=== PATIENT | female | born 1975 | race Caucasian/White ===

== ENCOUNTER → 2017-04-06 | Outpatient (CLI) | payer BC ==
--- NOTE | 2017-04-06 09:52 | MR ---
EXAMINATION TYPE: MR brain wo/w bayine wo DATE OF EXAM: 04/06/2017 7:43 AM COMPARISON: NONE HISTORY: Arnold-Chiari syndrome, Cervicalgia Multiplanar MultiSpin echo imaging of the cervical spine was performed. Comparison: December 27, 2015 C2-C3: No evidence for degenerative disc disease. No disc bulge/herniation or protrusion. No Canal stenosis. Foramina are patent bilaterally. C3-C4: No evidence for degenerative disc disease. No disc bulge/herniation or protrusion. No Canal stenosis. Foramina are patent bilaterally. C4-C5: No evidence for degenerative disc disease. No disc bulge/herniation or protrusion. No Canal stenosis. Foramina are patent bilaterally. C5-C6: Mild disc desiccation. Very small posterocentral disc protrusion. Minimal effacement ventral t hecal sac. No evidence for central stenosis or cord compression. C6-C7: No evidence for degenerative disc disease. No disc bulge/herniation or protrusion. No Canal stenosis. Foramina are patent bilaterally. C7-T1: No evidence for degenerative disc disease. No disc bulge/herniation or protrusion. No Canal stenosis. Foramina are patent bilaterally. The cerebellar tonsils extend to the level of the foramen magnum and extend approximately 1 mm below the level of the foramen magnum. No evidence for elle Chiari malformation. Cervical segments are int act. There is normal alignment. Cervical spinal cord is of normal signal. Craniovertebral junction relationships are within normal limits. IMPRESSION: 1. Low lying cerebellar tonsils. 2. Smaller posterocentral disc protrusion at C5-6. PRE AND POSTCONTRAST ENHANCED MRI OF THE BRAIN: CLINICAL HISTORY: CONTRAST: ML Multihance Multiplanar and multispin-echo imaging of the brain was performed both before and after the administr ation of contrast. The ventricles, basal cisterns and sulci overlying the cerebral convexities are within normal limits. There is no evidence for midline shift or mass effect. Acute intracranial hemorrhage or extra-axial collection is not evident. There are no abnormal areas of increased or decreased signal intensity within the brain parenchyma. Low-lying cerebellar tonsils without evidence for elle Chiari type I malformation. Following contrast administration, there is no evidence for pathologic enhancement or enhancing mass. The paranasal sinuses and mastoid air cells are well-aerated. IMPRESSION: Low-lying cerebellar tonsils without evidence for elle Chiari type I malformation.
== END | disposition home or self-care (01) ==
LOC: RADMRIMAIN 06:48
PROVIDERS: ATTEND Psychiatry & Neurology Neurology
DX: M50.222 Other cervical disc displacement at C5-C6 level (principal); Q07.00 Arnold-Chiari syndrome without spina bifida or hydrocephalus
CPT/HCPCS: 70553; 72141; A9581

== ENCOUNTER → 2019-02-13 | Outpatient (CLI) | payer BC ==
--- NOTE | 2019-02-13 16:17 | MR ---
MRI CERVICAL SPINE: CLINICAL HISTORY: Cervical spondylosis without myelopathy. Headache with neck pain for over 5 years p er patient. TECHNIQUE: Multiplanar, multisequence imaging of the cervical spine is performed without IV contrast. COMPARISON: MRI cervical spine December 27, 2015 FINDINGS: Sagittal images of the cervical spine show the craniocervical junction to remain within nor mal limits. The cervical and upper thoracic spinal cord remains normal in course, caliber, and signa l. Vertebral alignment is anatomic. The vertebral body and intravertebral disk heights remain michelle l. The bone marrow signal intensity is within normal limits. Axial images show the C2-C3 and C3-C4 levels to remain within normal limits. Axial images at the C4-C5 levels show new mild broad disc protrusion minimally effacing anterior thec al sac, bilateral neuroforamina are patent. Axial images at C5-C6 levels show more lobulated posterior disc protrusion effacing anterior thecal s ac with asymmetric mild right-sided neural foraminal narrowing. Axial images at C6-C7 and C7-T1 levels remain within normal limits. IMPRESSION: New degenerative changes mid cervical spine most prominent C5-C6 level.
== END | disposition home or self-care (01) ==
LOC: RADMRIMAIN 15:00
DX: M47.812 Spondylosis without myelopathy or radiculopathy, cervical region (principal)
CPT/HCPCS: 72141

== ENCOUNTER → 2019-10-20 | Outpatient (CLI) | payer BC ==
[2019-10-20 10:52] LABS: Appearance,Urine Clear (Clear); Bacteria,Urine Many /hpf; Bilirubin,Urine Negative (Negative); Blood,Urine Trace (Negative); Color,Urine Light Yellow; Glucose,Urine (UA) Negative (Negative); Ketones,Urine Negative (Negative); Leukocyte Esterase,Urine Moderate (Negative); Mucus,Urine Rare /hpf; Nitrite,Urine Negative (Negative); PH, Urine 7.5 (5.0-8.0); Protein,Urine Negative (Negative); RBC,Urine 1 /hpf (0-5); Specific Gravity,Urine 1.004 (1.001-1.035); Squamous Epithelial Cell,Urine 1 /hpf (0-4); Urobilinogen,Urine <2.0 mg/dL (<2.0); WBC,Urine 21 /hpf (0-5)
[2019-10-20 10:56] LABS: Partial Thromboplastin Time 22.6 sec (22.0-30.0); Prothrombin Time 10.6 sec (9.0-12.0)
[2019-10-20 11:09] LABS: Basophils # (A) 0.1 k/uL (0-0.2); Basophils % (A) 1 %; Eosinophils # (A) 0.1 k/uL (0-0.7); Eosinophils % (A) 2 %; HCT 37.9 % (34.0-46.0); HGB 12.7 gm/dL (11.4-16.0); Lymphocytes # (A) 1.1 k/uL (1.0-4.8); Lymphocytes % (A) 18 %; MCH 30.3 pg (25.0-35.0); MCHC 33.6 g/dL (31.0-37.0); MCV 90.3 fL (80.0-100.0); Monocytes # (A) 0.3 k/uL (0-1.0); Monocytes % (A) 5 %; Neutrophils # (A) 4.6 k/uL (1.3-7.7); Neutrophils % (A) 72 %; Platelet Count 248 k/uL (150-450); WBC 6.4 k/uL (3.8-10.6)
[2019-10-20 17:24] LABS: African American GFR (CKD) 130.3 (60.0-200.0); Albumin 4.2 g/dL (3.80-4.90); Albumin/Globulin Ratio 1.68 (1.60-3.17); Anion Gap 6.2 mmol/L (4.00-12.00); Calcium 9.3 mg/dL (8.7-10.3); Carbon Dioxide 28.8 mmol/L (21.6-31.8); Globulin 2.5 g/dL (1.6-3.3); Non-African American GFR(CKD) 112.4 (60.0-200.0); Potassium 4.5 mmol/L (3.5-5.5); Total Bilirubin 0.6 mg/dL (0.3-1.2); Total Protein 6.7 g/dL (6.2-8.2)
== END | disposition home or self-care (01) ==
LOC: LABWHC1 08:52
PROVIDERS: ATTEND Neurological Surgery
DX: G93.5 Compression of brain (principal)
CPT/HCPCS: 36415; 80053; 81001; 85025; 85610; 85730; 87086

== ENCOUNTER → 2019-11-06 | Outpatient (CLI) | payer BC ==
--- NOTE | 2019-11-07 06:32 | MR ---
EXAMINATION TYPE: MR brain/cspine wo DATE OF EXAM: 11/06/2019 COMPARISON: Prior MRI brain and cervical spine April 06, 2017. CT brain September 06, 2017. HISTORY: Loss of function on Right side following recent Chiari Decompression. History of prior attem pted Chiari decompression 2015. Extreme Nausea. TECHNIQUE: Multiplanar, multisequence imaging of the brain and brainstem and cervical spine are all p erformed without IV contrast. FINDINGS: BRAIN: Diffusion weighted images demonstrate subtle areas of increased signal corresponding to areas of incr eased T2 signal and diminished T1 signal involving the bilateral inferior aspect of the cerebellar he mispheres greater centrally near the vermis near site of posterior decompression. ADC mapping shows f airly isointense signal. New Extra-axial fluid posteriorly at this level is noted for reference axial image 7. There appears to be some involvement involving the right dorsal aspect near the cervical me dullary junction seen best flair axial image 5 measuring 4 x 7 mm transversely. There is no additional significant white matter signal abnormality above the posterior fossa. The ve ntricular system and cisternal spaces are normal in size and appearance. The brain volume is age selena ropriate. Midline structures demonstrate normal morphology. Low-lying cerebellar tonsils are now not identified . Normal vascular flow voids are present. The visualized sinuses are clear and the globes are intact. 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 C-SPINE: FINDINGS: Sagittal images of the cervical spine show interval successful correction of low-lying cere bellar tonsils. New posterior fluid collections from recent surgery is noted. The cervical and upper thoracic spinal cord is normal in course, caliber, and signal. Small focus of T2 hyperintensity note d near the cervical medullary junction right posterior aspect corresponding to recent brain MRI sagit yandel image 8 corresponding to area of acute/subacute ischemia. Vertebral alignment is anatomic. The vertebral body and intravertebral disk heights are normal. The bone marrow signal intensity is withi n normal limits. Axial images redemonstrate annular tear with tiny central disc protrusion mildly effacing anterior th ecal sac at C5-C6 level confirmed on sagittal image 8. Stable from prior. Remainder levels remain wit hin normal limits. IMPRESSION: Interval decompression of low-lying cerebellar tonsils. Stable tiny posterior disc hernia tion C5-C6 level.
== END | disposition home or self-care (01) ==
LOC: RADMRIMAIN 14:49
PROVIDERS: ATTEND Neurological Surgery
DX: I63.9 Cerebral infarction, unspecified (principal); G93.89 Other specified disorders of brain; M50.222 Other cervical disc displacement at C5-C6 level
CPT/HCPCS: 70551; 72141

== ENCOUNTER → 2020-05-06 | Outpatient (CLI) | payer BC ==
[2020-05-06 13:19] LABS: Basophils % (A) 1 %; Eosinophils # (A) 0.1 k/uL (0-0.7); Eosinophils % (A) 1 %; HCT 36.7 % (34.0-46.0); HGB 12.4 gm/dL (11.4-16.0); Lymphocytes # (A) 1.1 k/uL (1.0-4.8); Lymphocytes % (A) 14 %; MCH 28.9 pg (25.0-35.0); MCHC 33.7 g/dL (31.0-37.0); MCV 85.7 fL (80.0-100.0); Mean Platelet Volume 7.4; Monocytes # (A) 0.3 k/uL (0-1.0); Monocytes % (A) 4 %; Neutrophils # (A) 6.2 k/uL (1.3-7.7); Neutrophils % (A) 79 %; Platelet Count 296 k/uL (150-450); RBC 4.29 m/uL (3.80-5.40); RDW 12.5 % (11.5-15.5)
== END | disposition home or self-care (01) ==
LOC: LABPAT 13:00
PROVIDERS: ATTEND Obstetrics & Gynecology Obstetrics
DX: Z01.818 Encounter for other preprocedural examination (principal); N84.1 Polyp of cervix uteri; N93.8 Other specified abnormal uterine and vaginal bleeding
CPT/HCPCS: 85025

== ENCOUNTER 2020-05-10 09:52 | Day surgery (SDC) | payer BC ==
[2020-05-05 16:13] VITALS: BMI 23.2
[~2020-05-10 09:52] MED LIST: DEXAMETHASONE SOD PHOSPHATE 4 MG/ML 1 ML VIAL IV ONE; HYDROmorphone 0.5 MG/0.5 ML SYRINGE IVP PRN; LACTATED RINGERS 1,000 ML IV SCH; ONDANSETRON 4 MG/2 ML VIAL IVP ONE; Pre Op ABX Message 1 EACH MISC MISCELLANE ONE
[2020-05-10] MEDS ORDERED: LACTATED RINGERS 1,000 ML IV ONE (10:48)
[2020-05-10 10:52] VITALS: RESP 16
[2020-05-10] MEDS ORDERED: diphenhydrAMINE 50 MG/ML 1 ML VIAL ONE (10:53)
[2020-05-10] MEDS ORDERED: MIDAZOLAM 2 MG/2 ML VIAL ONE (10:53)
[2020-05-10] MEDS ORDERED: KETOROLAC 15 MG/ML 1 ML VIAL ONE (10:53)
[2020-05-10] MEDS ORDERED: LIDOCAINE 1% INJ 10MG/ML (20 ML MDV) ONE (10:53)
[2020-05-10] MEDS ORDERED: fentaNYL (PF) 50 MCG/ML 2 ML AMP ONE (10:53)
[2020-05-10] MEDS ORDERED: PROPOFOL 10 MG/ML 20 ML VIAL IV ONE (10:53)
[2020-05-10] MEDS ORDERED: ONDANSETRON 4 MG/2 ML VIAL ONE (10:53)
[2020-05-10] MEDS ORDERED: SCOPOLAMINE 1.5MG/72HR PATCH TRANSDERM ONE (10:54)
[2020-05-10 11:29] VITALS: TEMP 98
--- NOTE | 2020-05-10 11:41 | P.OP ---
Date of Procedure: 05/10/20 Preoperative Diagnosis: Menorrhagia, endometrial polyps Postoperative Diagnosis: Same Procedure(s) Performed: Hysteroscopy, dilation and curettage, Mirena IUD placement Anesthesia: MAC Surgeon: Jennifer Connell Estimated Blood Loss (ml): 2 Urine output (ml): 100 Pathology: other (Endometrial curettings) Condition: stable Disposition: PACU Indications for Procedure: Heavy menstrual bleeding, endometrial polyps Operative Findings: Proliferative endometrium with polyps noted Description of Procedure: Patient was taken back to the operating suite where general anesthesia was obtained without difficulty by the anesthesia . She was then prepped and draped in normal sterile fashion in the dorsal lithotomy position [place] catheter was then used to drain the bladder clear yellow urine. A weighted speculum was placed in the posterior vaginal vault intralipids the cervix is visualized and grasped with a single-tooth tenaculum. Endocervical canal was then dilated to 15-Hebrew. Hysteroscope was placed through the cervix and toward the endometrial cavity multiple polyps were noted. Pictures were taken and the camera was removed without difficulty. A sharp curettage was then performed until gritty texture was noted in all 4 quadrants of the endometrial cavity. Multiple polyps were noted specimen. Specimen was then sent to pathology for analysis. At this time the Mirena IUD was opened and set to the appropriate length of the patient's cavity, and placed without difficulty. The strings were then trimmed. The single-tooth tenaculum was taken off of the anterior lip the cervix hemostasis was appreciated. All counts were noted be correct 2 at the end of the procedure, patient tolerated procedure well and was taken the recovery room awake in stable condition.
[2020-05-10 12:25] VITALS: BP 106/62; PULSE 46
== END 2020-05-10 13:00 | disposition home or self-care (01) ==
LOC: OR 09:52
PROVIDERS: ATTEND Obstetrics & Gynecology Obstetrics
DX: N84.0 Polyp of corpus uteri (principal); G93.5 Compression of brain; Z90.49 Acquired absence of other specified parts of digestive tract; Z98.890 Other specified postprocedural states; Z79.899 Other long term (current) drug therapy
CPT/HCPCS: 81025; 88305; 58300; 58558; J2250; J1200; J1100; J2405; J2001; J3010; J1885; J2704

== ENCOUNTER → 2020-09-03 | Outpatient (CLI) | payer BC ==
[2020-09-03 15:50] LABS: HCT 37.5 % (37.2-46.3); MCH 28.4 pg (27.0-32.0); MCV 88.9 fL (80.0-97.0); Mean Platelet Volume 11.3 fL (9.5-12.2); Platelet Count 262 X 10*3/uL (140-440); RBC 4.22 X 10*6/uL (4.10-5.20); RDW 13.1 % (11.5-14.5); WBC 4.91 X 10*3/uL (4.50-10.00)
[2020-09-03 16:25] LABS: African American GFR (CKD) 105.4 (60.0-200.0); Albumin 4.3 g/dL (3.80-4.90); Albumin/Globulin Ratio 1.95 (1.60-3.17); Calcium 9.1 mg/dL (8.7-10.3); Globulin 2.2 g/dL (1.6-3.3); Magnesium 1.8 mg/dL (1.5-2.4); Non-African American GFR(CKD) 90.9 (60.0-200.0); Potassium 4.6 mmol/L (3.5-5.5); Total Bilirubin 0.5 mg/dL (0.2-1.2); Total Protein 6.5 g/dL (6.2-8.2)
[2020-09-03 18:24] LABS: Gliadin AB IgA, Deaminated NEGATIVE (NEGATIVE); Gliadin AB IgA, Unit 0.3 U/mL; Gliadin AB IgG, Deaminated NEGATIVE (NEGATIVE)
== END | disposition home or self-care (01) ==
LOC: LABWHC1 07:32
PROVIDERS: ATTEND Family Medicine
DX: K58.0 Irritable bowel syndrome with diarrhea (principal); R06.02 Shortness of breath; R53.83 Other fatigue
CPT/HCPCS: 36415; 80053; 82103; 82306; 82607; 82784; 83516; 83735; 84439; 84443; 85027

== ENCOUNTER → 2020-09-15 | Outpatient (CLI) | payer BC ==
--- NOTE | 2020-09-15 08:52 | CT ---
EXAMINATION TYPE: CT chest wo con DATE OF EXAM: 09/15/2020 COMPARISON: Chest x-ray February 16, 2020 HISTORY: Difficulty breathing X 2 years, COPD, and asthma per order. CT DLP: 109.5 mGycm. Automated Exposure Control for Dose Reduction was Utilized. TECHNIQUE: CT scan of the thorax is performed without IV contrast. FINDINGS: LUNGS: The lungs are grossly clear, there is no concerning parenchymal mass or nodule identified. T here is no pleural effusion or pneumothorax seen. The tracheobronchial tree is patent. MEDIASTINUM: Lack of IV contrast is noted to limit evaluation for mediastinal and especially hilar ad enopathy. There are no definitive greater than 1 cm hilar or mediastinal lymph nodes. No cardiomega ly or pericardial effusion is seen. OTHER: Slight underlying Scoliotic curvature on coronal images. Mild to minimal multilevel anterior s purring. IMPRESSION: No suspicious acute or chronic pulmonary process.
--- NOTE | 2020-09-15 11:19 | MM ---
Reason for exam: screening (asymptomatic). Baseline mammogram. History: Patient is nulliparous. Took other hormone for 1 year beginning at age 43. Physical Findings: Nurse did not find any significant physical abnormalities on exam. MG 3D Screening Mammo W/Cad Bilateral CC, MLO, and XCCL view(s) were taken. The breast tissue is heterogeneously dense. This may lower the sensitivity of mammography. No suspicious calcifications or masses. There is no discrete abnormality. These results were verbally communicated with the patient and result sheet given to the patient on 09/15/20. ASSESSMENT: Negative, BI-RAD 1 RECOMMENDATION: Routine screening mammogram of both breasts in 1 year.
== END | disposition home or self-care (01) ==
LOC: RADCTMAIN 07:50
PROVIDERS: ATTEND Obstetrics & Gynecology Obstetrics
DX: J44.9 Chronic obstructive pulmonary disease, unspecified (principal); Z12.31 Encounter for screening mammogram for malignant neoplasm of breast
CPT/HCPCS: 71250; 77063; 77067

== ENCOUNTER → 2021-08-19 | Outpatient (CLI) | payer BC | END | disposition home or self-care (01) | LOC: RADUSWWP 09:42 | PROVIDERS: ATTEND Obstetrics & Gynecology Obstetrics | DX: Z53.9 Procedure and treatment not carried out, unspecified reason (principal) ==

== ENCOUNTER → 2022-04-14 | Outpatient (CLI) | payer BC ==
--- NOTE | 2022-04-14 09:50 | US ---
EXAMINATION TYPE: US abdomen complete DATE OF EXAM: 04/14/2022 COMPARISON: NONE CLINICAL HISTORY: Lower abdomen pain, hematuria TECHNIQUE: Multiple sonographic images of the abdomen are obtained. FINDINGS: EXAM MEASUREMENTS: Liver Length: 16.8 cm Gallbladder Wall: 0.18 cm CBD: 0.30 cm Spleen: 10.0 cm Right Kidney: 11.6 x 4.0 x 5.2 cm Left Kidney: 11.5 x 4.9 x 4.8 cm Pancreas: wnl Liver: wnl Gallbladder: wnl Evidence for sonographic Puga's sign: No CBD: wnl Spleen: wnl Right Kidney: wnl No evidence of renal calculus. No evidence of mass. Left Kidney: wnl No evidence of renal calculus. No evidence of mass. Upper IVC: wnl Abd Aorta: wnl The liver is homogenous. The intrahepatic portion of the IVC and proximal abdominal aorta are within normal limits. There is no evidence of cholelithiasis. Common bile duct is unremarkable. The visu alized portions of the pancreas are homogenous. The spleen is unremarkable. Kidneys are symmetric a nd free of hydronephrosis. No renal lesions are seen. IMPRESSION: No acute intracranial process, no evidence of renal calculi or mass.
--- NOTE | 2022-04-14 10:06 | US ---
EXAMINATION TYPE: US pelvic complete DATE OF EXAM: 04/14/2022 COMPARISON: NONE CLINICAL HISTORY: Lower abdomen pain, hematuria TECHNIQUE: Transvaginal (TV) and Transabdominal (TA) . Transabdominal sonographic images of the pel vis were acquired. Transvaginal sonographic images were medically necessary to better assess the fol lowing anatomy: EXAM MEASUREMENTS: Uterus: 8.6 x 3.9 x 4.5 cm Endometrial Stripe: 0.77 cm Right Ovary: 3.7 x 2.5 x 1.5 cm Left Ovary: 2.1 x 2.4 x 1.2 cm 1. Uterus: *In the cervical region, a complex area, possibly mass, is visualized with an echogenic foci and cyst ic regions, overall measuring 2.4 x 1.7 x 2.0cm. There is color Doppler flow within this region. *Hypoechoic mass anterior fundus measuring 0.81 x 0.65 x 0.68cm likely representing fibroid. 2. Endometrium: An echogenic area at the superior endometrium without vascularity is visualized. 0. 46 x 0.44 x 0.66cm 3. Right Ovary: wnl 4. Left Ovary: wnl 5. Bilateral Adnexa: Prominent vessels within the right adnexa 6. Posterior cul-de-sac: wnl IMPRESSION: 1. Complex area within the cervix measuring up to 2.4 cm which could represent a mass given internal color Doppler flow. Clinical correlation and further evaluation with direct visualization is recomme nded. 2. Fibroid changes. 3.
== END | disposition home or self-care (01) ==
LOC: RADUSWWP 07:41
PROVIDERS: ATTEND Family Medicine
DX: D25.9 Leiomyoma of uterus, unspecified (principal); R10.84 Generalized abdominal pain; R31.9 Hematuria, unspecified
CPT/HCPCS: 76700; 76830; 76856

== ENCOUNTER → 2022-05-09 | Outpatient (CLI) | payer BC ==
[2022-05-09 14:43] LABS: Basophils # (A) 0.04 X 10*3/uL (0.00-0.10); Basophils % (A) 0.6 %; Eosinophils % (A) 3.2 %; HCT 37.4 % (37.2-46.3); HGB 12.7 g/dL (12.0-15.0); Immature Grans, Automated 0.5 %; Lymphocytes # (A) 1.01 X 10*3/uL (0.90-5.00); Lymphocytes % (A) 16.2 %; MCH 30.2 pg (27.0-32.0); Mean Platelet Volume 10.5 fL (9.5-12.2); Monocytes # (A) 0.61 X 10*3/uL (0.20-1.00); Monocytes % (A) 9.8 %; NRBC Per 100 WBC 0 /100 WBCS (0.0-0.0); Neutrophils # (A) 4.36 X 10*3/uL (1.80-7.70); Neutrophils % (A) 69.7 %; Platelet Count 273 X 10*3/uL (140-440); RDW 12.6 % (11.5-14.5); WBC 6.25 X 10*3/uL (4.50-10.00)
== END | disposition home or self-care (01) ==
LOC: LABWHC1 10:44
PROVIDERS: ATTEND Obstetrics & Gynecology Obstetrics
DX: Z01.812 Encounter for preprocedural laboratory examination (principal); N88.8 Other specified noninflammatory disorders of cervix uteri
CPT/HCPCS: 36415; 85025

== ENCOUNTER 2022-05-12 07:25 | Day surgery (SDC) | payer BC ==
[2022-05-09 12:56] VITALS: BMI 22.8
[~2022-05-12 07:25] MED LIST changes: +LIDOCAINE 1% (10MG/ML) FOR IV START INTRADERMA PRN; +MIDAZOLAM 2 MG/2 ML VIAL IV PRN
[2022-05-12 07:47] VITALS: RESP 16
[2022-05-12] MEDS ORDERED: SCOPOLAMINE 1 MG/72 HR PATCH TRANSDERM ONE (08:11)
[2022-05-12] MEDS ORDERED: KETOROLAC 15 MG/ML 1 ML VIAL ONE (08:33)
[2022-05-12] MEDS ORDERED: LIDOCAINE 2% INJ 20 MG/ML (2 ML VIAL) ONE (08:33)
[2022-05-12] MEDS ORDERED: PROPOFOL 10 MG/ML 20 ML VIAL IV ONE (08:33)
[2022-05-12] MEDS ORDERED: SUCCINYLCHOLINE CHLORIDE 200 MG/10 ML VIAL IV ONE (08:33)
[2022-05-12] MEDS ORDERED: MIDAZOLAM 2 MG/2 ML VIAL ONE (08:33)
[2022-05-12] MEDS ORDERED: fentaNYL (PF) 50 MCG/ML 2 ML AMP ONE (08:33)
[2022-05-12] MEDS ORDERED: SILVER NITRATE APPLICATOR 1 EACH STICK..EA. TOPICAL ONE (09:03)
[2022-05-12 09:23] VITALS: TEMP 97.4
--- NOTE | 2022-05-12 09:45 | P.OP ---
Date of Procedure: 05/12/22 Preoperative Diagnosis: Cervical mass Postoperative Diagnosis: Same Procedure(s) Performed: Hysteroscopy, dilation and curettage Anesthesia: NINI Surgeon: Jennifer Connell Estimated Blood Loss (ml): 5 Urine output (ml): 50 Pathology: other (Endocervical curettings, endometrial curettings) Condition: stable Disposition: PACU Indications for Procedure: Cervical mass appreciated on ultrasound Operative Findings: Endocervical polyps were appreciated normal appearing proliferative endometrial cavity Description of Procedure: Patient was taken back to the operating suite where general anesthesia was obta ined without difficulty by the anesthesia department. She was prepped and draped in the normal sterile fashion in the dorsal lithotomy position. A red rubber catheter was used to drain the bladder clear yellow urine. A weighted speculum posterior vaginal vault the anterior lip of the cervix was visualized and grasped with a single-tooth tenaculum. The cervical canal was then serially dilated. The uterus was sounded to 7 cm. The hysteroscope was placed through the cervix and in the endocervical canal multiple polyps were appreciated. The endometrial cavity appeared proliferative in nature. Hysteroscope was removed and a sharp curettage of the endocervical canal was then performed this specimen was sent to pathology for analysis. An additional endometrial curettage was performed and sent to pathology for analysis. The single-tooth tenaculum was removed from the antrum lip the cervix, bleeding was appreciated therefore silver nitrate and pressure was applied. Hemostasis was then noted. A small amount of bleeding was noted coming from the endocervical canal. All counts were noted be correct 2 and the procedure. Patient tolerated procedure well and was taken the recovery room awake in stable condition.
[2022-05-12 10:40] VITALS: BP 121/71; PULSE 51
== END 2022-05-12 10:53 | disposition home or self-care (01) ==
LOC: OR 07:25
PROVIDERS: ATTEND Obstetrics & Gynecology Obstetrics
DX: N84.1 Polyp of cervix uteri (principal); N87.9 Dysplasia of cervix uteri, unspecified; J45.909 Unspecified asthma, uncomplicated; Q07.00 Arnold-Chiari syndrome without spina bifida or hydrocephalus; K21.9 Gastro-esophageal reflux disease without esophagitis; G83.9 Paralytic syndrome, unspecified; Z87.891 Personal history of nicotine dependence; Z79.1 Long term (current) use of non-steroidal anti-inflammatories (NSAID); Z79.899 Other long term (current) drug therapy
CPT/HCPCS: 58558; 81025; 88305; J2250; J0330; J1100; J2405; J3010; J1885; J2704; J2001

== ENCOUNTER → 2022-11-09 | Outpatient (CLI) | payer BC ==
--- NOTE | 2022-11-09 09:49 | MR ---
EXAMINATION TYPE: MR brain wo/w con DATE OF EXAM: 11/09/2022 COMPARISON: 11/06/2019 11/09/2014 HISTORY: Right lower leg paresthesia TECHNIQUE: Multiplanar, multisequence images of the brain and brainstem is performed without and with IV contras t, utilizing 5.5 mL intravenous Gadavist . FINDINGS: Diffusion weighted images demonstrate no evidence of a recent infarct or other diffusion ab normality. There is no extra-axial fluid collection or significant white matter signal abnormality. The ventricular system and cisternal spaces are normal in size and appearance. The brain volume is age appropriate. Midline structures demonstrate normal morphology. The craniocervical junction appears within normal limits. Post contrast images demonstrate no abnormal enhancement. The dural venous sinuses appear pa tent. Mild chronic sinusitis. The globes are intact. 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 Artifact i n the posterior fossa. IMPRESSION: 1. No evidence of acute process. No enhancing mass or diagnostic evidence of white matter disease. 2. 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 Not completely cystic. Finding is stable dating back to 2014. Cannot exclude a pineocytoma. Given stabi lity lesion likely benign.
== END | disposition home or self-care (01) ==
LOC: RADMRIMAIN 08:36
PROVIDERS: ATTEND Orthopaedic Surgery
DX: E34.8 Other specified endocrine disorders (principal); G37.9 Demyelinating disease of central nervous system, unspecified; M79.661 Pain in right lower leg; M54.16 Radiculopathy, lumbar region; R20.2 Paresthesia of skin
CPT/HCPCS: 70553; A9585

== ENCOUNTER → 2023-01-04 | Outpatient (CLI) | payer BC ==
[2023-01-04 11:18] LABS: Basophils # (A) 0.06 X 10*3/uL (0.00-0.10); Basophils % (A) 1.2 %; Eosinophils # (A) 0.19 X 10*3/uL (0.04-0.35); Eosinophils % (A) 3.8 %; HCT 39.6 % (37.2-46.3); HGB 13.3 d/dL (12.0-15.0); Lymphocytes # (A) 1.08 X 10*3/uL (0.90-5.00); Lymphocytes % (A) 21.3 %; MCH 30.3 pg (27.0-32.0); MCHC 33.6 d/dL (32.0-37.0); MCV 90.2 FL (80.0-97.0); Mean Platelet Volume 10.7 FL (9.5-12.2); Monocytes # (A) 0.41 X 10*3/uL (0.20-1.00); Monocytes % (A) 8.1 %; NRBC Per 100 WBC 0 X 10*3/uL (0.00-0.01); Neutrophils # (A) 3.31 X 10*3/uL (1.80-7.70); Neutrophils % (A) 65.4 %; Platelet Count 281 X 10*3/uL (140-440); RBC 4.39 X 10*6/uL (4.10-5.20); RDW 12.2 % (11.5-14.5); WBC 5.06 X 10*3/uL (4.50-10.00)
[2023-01-04 11:35] LABS: ALT 17 U/L (8-44); AST 18 U/L (13-35); Albumin 4.5 d/dL (3.8-4.9); Albumin/Globulin Ratio 1.88 Ratio (1.60-3.17); Alkaline Phosphatase 56 U/L (41-126); BUN/Creat Ratio 18.14 Ratio (12.00-20.00); Blood Urea Nitrogen 12.7 mg/dL (9.0-27.0); Calcium 9.1 mg/dL (8.7-10.3); Carbon Dioxide 25.5 mmol/L (21.6-31.8); Chloride 104 mmol/L (96-109); Ferritin 52.2 ng/mL (10.0-291.0); Globulin 2.4 d/dL (1.6-3.3); Glucose 102 mg/dL (70-110); Iron 91 UG/DL (50-170); Magnesium 1.9 mg/dL (1.5-2.4); Potassium 4.5 mmol/L (3.5-5.5); Sodium 139 mmol/L (135-145); Total Bilirubin 0.4 mg/dL (0.3-1.2); Total Protein 6.9 d/dL (6.2-8.2)
== END | disposition home or self-care (01) ==
LOC: LABWHC1 07:35
PROVIDERS: ATTEND Family Medicine
DX: R53.83 Other fatigue (principal); R20.2 Paresthesia of skin
CPT/HCPCS: 36415; 80053; 82306; 82533; 82607; 82728; 83540; 83735; 84443; 85025

== ENCOUNTER 2024-03-20 12:48 | Observation (INO) | payer BC ==
--- NOTE | 2024-03-20 13:34 | ED ---
General Adult HPI - General Chief complaint: Neuro Symptoms/Deficit Stated complaint: neuro symptoms Time Seen by Provider: 03/20/24 13:00 Source: patient, EMS, RN notes reviewed, old records reviewed Mode of arrival: EMS Limitations: no limitations - History of Present Illness Initial comments: This is a 48-year-old female who presents to the emergency department with a past medical history significant for Chiari malformation surgery x 2. Patient states the last time she had surgery was 2001 and she had a small stroke at that time with some right-sided residual. Patient states about 10:00 this morning she had a period of time where her left side was weak and then her right hand was having a hard time writing and she started having a small headache in the temporal region bilaterally patient states she also seem to have a hard time finding words for a moment. Patient states when she was walking on the [place] she seemed to be walking a little bit more towards the left and then her thighs became really weak bilaterally and she was set down the ground by some coworkers. Patient states on the way and in the ambulance her whole body started shaking. That has since stopped and her speech is back to normal. Currently she feels like both of her arms are weaker than they normally are and she has a little bit of pain in the upper neck region at the base of her skull - Related Data Home Medications Medication Instructions Recorded Confirmed ondansetron HCL [Zofran] 4 mg PO Q6H PRN 09/06/17 03/20/24 Acetaminophen/Pamabrom [Midol 2 - 4 tab PO DAILY PRN 03/20/24 03/20/24 Caplet] Temazepam 7.5 mg PO HS 03/20/24 03/20/24 Allergies Allergy/AdvReac Type Severity Reaction Status Date / Time No Known Allergies Allergy Verified 03/20/24 14:07 Review of Systems ROS Statement: Those systems with pertinent positive or pertinent negative responses have been documented in the HPI. ROS Other: All systems not noted in ROS Statement are negative. Past Medical History Past Medical History: CVA/TIA Additional Past Medical History / Comment(s): Chiari malformation, low BP. History of Any Multi-Drug Resistant Organisms: None Reported Past Surgical History: Appendectomy Additional Past Surgical History / Comment(s): Chiari malformation surgery X2, septoplasty. Past Anesthesia/Blood Transfusion Reactions: Motion Sickness, Postoperative Nausea & Vomiting (PONV) Past Psychological History: No Psychological Hx Reported Smoking Status: Former smoker Past Alcohol Use History: Occasional Past Drug Use History: None Reported - Past Family History Mother Family Medical History: No Reported History General Exam - General Exam Comments Initial Comments: GENERAL: Patient is well-developed and well-nourished. Patient is nontoxic and well- hydrated and is in mild distress. ENT: Neck is soft and supple. No significant lymphadenopathy is noted. Oropharynx is clear. Moist mucous membranes. Neck has full range of motion without eliciting any pain. Patient has some pain at the base of her skull she states that the area where she had surgery and there is some skull missing EYES: The sclera were anicteric and conjunctiva were pink and moist. Extraocular movements were intact and pupils were equal round and reactive to light. Eyelids were unremarkable. PULMONARY: Unlabored respirations. Good breath sounds bilaterally. No audible rales rhonchi or wheezing was noted. CARDIOVASCULAR: There is a regular rate and rhythm without any murmurs gallops or rubs. ABDOMEN: Soft and nontender with normal bowel sounds. SKIN: Skin is clear with no lesions or rashes and otherwise unremarkable. NEUROLOGIC: Patient is alert and oriented x3. Cranial nerves II through XII are grossly intact. Has bilateral supervisor commissary production weakness 4 out of 5. Patient has no weakness at this time in the leg MUSCULOSKELETAL: Normal extremities with adequate strength and full range of motion. No lower extremity swelling or edema. No calf tenderness. LYMPHATICS: No significant lymphadenopathy is noted PSYCHIATRIC: Normal psychiatric evaluation. Limitations: no limitations Course Vital Signs 03/20/24 03/20/24 12:52 15:15 Temperature 98.5 F Pulse Rate 129 H 66 Respiratory 20 18 Rate Blood Pressure 128/87 122/79 O2 Sat by Pulse 99 100 Oximetry Medical Decision Making - Medical Decision Making EKG was interpreted by myself. EKG shows sinus rhythm at 80 bpm [place] interval is under 36 QRS is 99 QT interval is 387 QTc is 423. Patient EKG shows no ST segment elevation or depression Was pt. sent in by a medical professional or institution (, PA, REGISTER REPAIRER, urgent care, hospital, or long-term...) When possible be specific @ -No Did you speak to anyone other than the patient for history (EMS, parent, family, police, friend...)? What history was obtained from this source @ -No Did you review nursing and triage notes (agree or disagree)? Why? @ -I reviewed and agree with nursing and triage notes Were old charts reviewed (outside hosp., previous admission, EMS record, old EKG, old radiological studies, urgent care reports/EKG's, long-term records)? Report findings @ -No old charts were reviewed Differential Diagnosis? @ -Differential CVA Ischemic stroke, hemorrhagic stroke, brain tumor, atypical migraine, Wernicke's encephalopathy, seizure, multiple sclerosis, meningitis, encephalitis, hypoglycemia, Guillain-Barrett, electrolytes disturbance, myasthenia gravis.... This is not meant to be an all-inclusive list EKG interpreted by me (3pts min.). @ -As above X-rays interpreted by me (1pt min.). @ -None done CT interpreted by me (1pt min.). @ -CT of the brain shows no acute abnormality. CT angio of the head and neck shows no acute abnormality. U/S interpreted by me (1pt. min.). @ -None done What testing was considered but not performed or refused? (CT, X-rays, U/S, labs)? Why? @ -None What meds were considered but not given or refused? Why? @ -None Did you discuss the management of the patient with other professionals (professionals i.e. , PA, REGISTER REPAIRER, lab, RT, psych nurse, social services manager, equipment service technician, teacher, flight deck officer, patient case coordinator)? Give summary @ -Spoke with Dr. Dao he agreed to admit the patient admit the patient wrote admitting orders Was smoking cessation discussed for >3mins.? @ -No Was critical care preformed (if so, how long)? @ -No Were there social determinants of health that impacted care today? How? (Homelessness, low income, unemployed, alcoholism, drug addiction, transportation, low edu. Level, literacy, decrease access to med. care, correction, rehab)? @ -No Was there de-escalation of care discussed even if they declined (Discuss DNR or withdrawal of care, Hospice)? DNR status @ -No What co-morbidities impacted this encounter? (DM, HTN, Smoking, COPD, CAD, Cancer, CVA, ARF, Chemo, Hep., AIDS, mental health diagnosis, sleep apnea, morbid obesity)? @ -None Was patient admitted / discharged? Hospital course, mention meds given and route, prescriptions, significant lab abnormalities, going to OR and other pertinent info. @ -Patient received a milligram of Ativan and was feeling considerably better. Patient had no further symptoms throughout the ED stay. CAT scans were normal lab work is normal. I will be admitting the patient to [facility] and will consult neurology Undiagnosed new problem with uncertain prognosis? @ -No Drug Therapy requiring intensive monitoring for toxicity (Heparin, Nitro, Insulin, Cardizem)? @ -No Were any procedures done? @ -No Diagnosis/symptom? @ -TIA Acute, or Chronic, or Acute on Chronic? @ -Acute Uncomplicated (without systemic symptoms) or Complicated (systemic symptoms)? @ -Complicated Side effects of treatment? @ -No Exacerbation, Progression, or Severe Exacerbation? @ -No Poses a threat to life or bodily function? How? (Chest pain, USA, LA, pneumonia, PE, COPD, DKA, ARF, appy, cholecystitis, CVA, Diverticulitis, Homicidal, Suicidal, threat to staff... and all critical care pts) @ -Yes this could lead to a stroke and more morbidity or mortality - Lab Data Result diagrams: 03/20/24 13:41 03/20/24 13:41 Lab Results 03/20/24 03/20/24 03/20/24 Range/Units 13:41 13:41 13:41 WBC 7.9 (3.8-10.6) k/uL RBC 4.36 (3.80-5.40) m/uL Hgb 12.9 (11.4-16.0) gm/dL Hct 39.6 (34.0-46.0) % MCV 90.8 (80.0-100.0) fL MCH 29.5 (25.0-35.0) pg MCHC 32.5 (31.0-37.0) g/dL RDW 12.2 (11.5-15.5) % Plt Count 322 (150-450) k/uL MPV 8.1 Neutrophils % 73 % Lymphocytes % 19 % Monocytes % 6 % Eosinophils % 1 % Basophils % 0 % Neutrophils # 5.7 (1.3-7.7) k/uL Lymphocytes # 1.5 (1.0-4.8) k/uL Monocytes # 0.4 (0-1.0) k/uL Eosinophils # 0.1 (0-0.7) k/uL Basophils # 0.0 (0-0.2) k/uL PT 10.9 (10.0-12.5) sec INR 1.0 (<1.2) APTT 22.3 (22.0-30.0) sec Sodium 138 (137-145) mmol/L Potassium 4.3 (3.5-5.1) mmol/L Chloride 105 (98-107) mmol/L Carbon Dioxide 18 L (22-30) mmol/L Anion Gap 15 mmol/L BUN 12 (7-17) mg/dL Creatinine 0.59 (0.52-1.04) mg/dL Est GFR (CKD-EPI)AfAm >90 (>60 ml/min/1.73 sqM) Est GFR (CKD-EPI)NonAf >90 (>60 ml/min/1.73 sqM) Glucose 104 H (74-99) mg/dL Calcium 9.4 (8.4-10.2) mg/dL Total Bilirubin 0.7 (0.2-1.3) mg/dL AST 24 (14-36) U/L ALT 17 (4-34) U/L Alkaline Phosphatase 55 (38-126) U/L Creatine Kinase 48 (30-135) U/L Troponin I (0.000-0.034) ng/mL Total Protein 7.6 (6.3-8.2) g/dL Albumin 4.6 (3.5-5.0) g/dL 03/20/24 Range/Units 13:41 WBC (3.8-10.6) k/uL RBC (3.80-5.40) m/uL Hgb (11.4-16.0) gm/dL Hct (34.0-46.0) % MCV (80.0-100.0) fL MCH (25.0-35.0) pg MCHC (31.0-37.0) g/dL RDW (11.5-15.5) % Plt Count (150-450) k/uL MPV Neutrophils % % Lymphocytes % % Monocytes % % Eosinophils % % Basophils % % Neutrophils # (1.3-7.7) k/uL Lymphocytes # (1.0-4.8) k/uL Monocytes # (0-1.0) k/uL Eosinophils # (0-0.7) k/uL Basophils # (0-0.2) k/uL PT (10.0-12.5) sec INR (<1.2) APTT (22.0-30.0) sec Sodium (137-145) mmol/L Potassium (3.5-5.1) mmol/L Chloride (98-107) mmol/L Carbon Dioxide (22-30) mmol/L Anion Gap mmol/L BUN (7-17) mg/dL Creatinine (0.52-1.04) mg/dL Est GFR (CKD-EPI)AfAm (>60 ml/min/1.73 sqM) Est GFR (CKD-EPI)NonAf (>60 ml/min/1.73 sqM) Glucose (74-99) mg/dL Calcium (8.4-10.2) mg/dL Total Bilirubin (0.2-1.3) mg/dL AST (14-36) U/L ALT (4-34) U/L Alkaline Phosphatase (38-126) U/L Creatine Kinase (30-135) U/L Troponin I <0.012 (0.000-0.034) ng/mL Total Protein (6.3-8.2) g/dL Albumin (3.5-5.0) g/dL Disposition Clinical Impression: Transient cerebral ischemia Disposition: ADMITTED IP TO THIS HOSP Referrals: Samantha Desir MD [Primary Care Provider] - 1-2 days Time of Disposition: 16:25
[2024-03-20] MEDS: LORazepam 2 MG/ML INJ IV STA (13:45)
[2024-03-20 13:58] LABS: Basophils % (A) 0 %; Eosinophils # (A) 0.1 k/uL (0-0.7); Eosinophils % (A) 1 %; HCT 39.6 % (34.0-46.0); HGB 12.9 gm/dL (11.4-16.0); Lymphocytes # (A) 1.5 k/uL (1.0-4.8); Lymphocytes % (A) 19 %; MCH 29.5 pg (25.0-35.0); MCHC 32.5 g/dL (31.0-37.0); MCV 90.8 fL (80.0-100.0); Mean Platelet Volume 8.1; Monocytes # (A) 0.4 k/uL (0-1.0); Monocytes % (A) 6 %; Neutrophils # (A) 5.7 k/uL (1.3-7.7); Neutrophils % (A) 73 %; Platelet Count 322 k/uL (150-450); RBC 4.36 m/uL (3.80-5.40); RDW 12.2 % (11.5-15.5); WBC 7.9 k/uL (3.8-10.6)
[2024-03-20 14:07] LABS: Partial Thromboplastin Time 22.3 sec (22.0-30.0); Prothrombin Time 10.9 sec (10.0-12.5)
[2024-03-20 14:13] LABS: ALT 17 U/L (4-34); AST 24 U/L (14-36); African American GFR (CKD) >90 (>60 ml/min/1.73 sqM); Albumin 4.6 g/dL (3.5-5.0); Alkaline Phosphatase 55 U/L (38-126); Anion Gap 15 mmol/L; Blood Urea Nitrogen 12 mg/dL (7-17); Calcium 9.4 mg/dL (8.4-10.2); Carbon Dioxide 18 mmol/L (22-30); Chloride 105 mmol/L (98-107); Creatine Kinase 48 U/L (30-135); Glucose 104 mg/dL (74-99); Non-African American GFR(CKD) >90 (>60 ml/min/1.73 sqM); Potassium 4.3 mmol/L (3.5-5.1); Sodium 138 mmol/L (137-145); Total Bilirubin 0.7 mg/dL (0.2-1.3); Total Protein 7.6 g/dL (6.3-8.2)
--- NOTE | 2024-03-20 14:40 | CT ---
EXAMINATION TYPE: CT brain wo con CT DLP: 1172.6 mGycm, Automated exposure control for dose reduction was used. DATE OF EXAM: 03/20/2024 2:31 PM COMPARISON: MRI brain 11/09/2022, CT brain 09/06/2017. CLINICAL INDICATION:Female, 48 years old with history of Extremity weakness, Extremity weakness, legs started to convulse on patient earlier, hx of Chiari Malformation, brain sx, prior stroke TECHNIQUE: Brain: Multiple axial CT images of the brain were obtained without IV contrast. . Coronal and sagitta l reformats reviewed. FINDINGS: Brain: Extra-axial spaces: No abnormal extra-axial fluid collections. Ventricular system: Within normal limits Cerebral parenchyma: No acute intraparenchymal hemorrhage or mass effect. The combs-white junction is well differentiated. Calcification in the pineal gland region. Cerebellum: Postsurgical changes from occipital decompression. Remote injury to the inferior bilatera l cerebellum corresponding to prior MRI. Mass effect: No evidence of midline shift. Intracranial vasculature: unremarkable Soft tissues: Normal. Calvarium/osseous structures: No depressed skull fracture. Postsurgical changes from occipital decomp ression penetrated. Paranasal sinuses and mastoid air cells: Clear Visualized orbits: Orbital contents are intact. IMPRESSION: 1. No acute intracranial process. 2. Postsurgical changes from occipital decompression redemonstrated. [facility], , 03/20/2024 2:38 PM
--- NOTE | 2024-03-20 14:44 | CT ---
EXAMINATION TYPE: CT angio head neck CT DLP: 355.8 mGycm, Automated exposure control for dose reduction was used. DATE OF EXAM: 03/20/2024 2:32 PM COMPARISON: CT brain 03/20/2024, 09/06/2009, MR brain 11/09/2022. CLINICAL INDICATION:Female, 48 years old with history of Neuro deficit, acute, stroke suspected; PHH, Extremity weakness, legs started to convulse on patient earlier, hx of Chiari Malformation, brain sx , prior stroke TECHNIQUE: Axially acquired helical CT angiogram of the head and neck was obtained with contrast util izing 75 cc of Isovue-370 administered intravenously. Axial images are supplemented with 3D reconstru ctions which were post-processed at an independent workstation. NASCET criteria used. FINDINGS: CTA HEAD: No evidence of acute intracranial hemorrhage, mass effect, or midline shift. The ventricles, sulci, a nd cisterns are unremarkable. The visualized portions of the internal carotid arteries, middle cerebral arteries, anterior cerebral arteries, and posterior cerebral arteries are patent. The basilar and vertebral arteries are patent. CTA NECK: Right Carotid System: The common carotid artery and external carotid artery are patent. The carotid bifurcation demonstrate s no evidence of hemodynamically significant stenosis. The remaining portions of the internal carotid artery demonstrate normal size without significant narrowing. Left Carotid System: The common carotid artery and external carotid artery are patent. The carotid bifurcation demonstrate s no evidence of hemodynamically significant stenosis. The remaining portions of the internal carotid artery demonstrate normal size without significant narrowing. Vertebral arteries are patent without evidence hemodynamically significant stenosis. There is a three-vessel aortic arch. The origins of the great vessels are patent. No evidence of hemo dynamically significant stenosis. Postsurgical changes from occiput decompression. IMPRESSION: 1. No evidence of dissection of the cervical internal carotid arteries or vertebral arteries or any e vidence of significant stenosis at the carotid bifurcations. 2. No evidence of high-grade stenosis or intracranial aneurysm. [facility], , 03/20/2024 2:41 PM
[2024-03-20] MEDS: ASPIRIN 325 MG TAB PO STA (16:55)
--- NOTE | 2024-03-20 18:06 | P.HPIM ---
History of Present Illness H&P Date: 03/20/24 Patient is a 48-year-old female with history of Arnold-Chiari malformation status post surgery in 2014 and 2019, CVA presents to the ER with constellation of neurological symptoms. 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 She was also endorsing constant headache, dizziness and had difficulty finding words. She noticed that her handwriting was becoming progressively worse. While she was walking in the hallway she also started noticed that her both lower extremities were becoming weak and she could not walk anymore and had to sit on the floor for some time. She is also started to feel shooting pain across her chest. At that point patient became concerned and decided to call the ambulance and come to the ER for further evaluation. While in transit, patient started noticing convulsions in lower extremities and diaphoresis which lasted for about 20 minutes. Patient never experienced c onstellation of neurological symptoms like these in the past although she has been feeling headaches and intermittent dizziness associated with some nausea and vomiting in the past attributing that to history of her Chiari malformation. Patient states that she had a stroke during her Chiari malformation surgery in 2019 which resulted in some residual right-sided weakness in upper extremity. Otherwise patient denies any facial drooping and or drooling. No history of cardiac issues such as coronary artery disease and/or cardiac arrhythmias. Denies any history of blood disorder or clots. Patient states that her mother with ALS in her 70s. Other than that no other significant family history. At the time of the interview, most of her symptoms have resolved however patient continues to complain of numbness, weakness and tingling in both upper and lower extremities. Laboratory evaluation in the ER shows WBC 7.9, hemoglobin 12.9, MCV 90.8, platelet count 322, PT 10.9, INR 1.0, APTT 22.3, sodium 138, potassium 4.3, chloride 105, bicarb 18, anion gap 15, BUN 12, creatinine 0.59. Troponin I less than 0.012, creatinine kinase 48. Vital signs: Temperature 98.5 F, heart rate 129, respiration 20, BP 128/87, saturating 99% on room air. EKG in the ER shows normal sinus rhythm with normal VT interval and no QTc prolongation noted. No specific STT wave changes noted. Brain CT shows no acute intracranial processes. CT angio of the head and neck unremarkable for any significant stenosis, aneurysm and/or dissection. Review of systems: Pertinent positives and negatives as discussed in HPI, a complete review of systems was performed and all other systems are negative. Social history: Tobacco: [id number]; quit 2008 Alcohol: Occasionally Recreational drugs: None Occupation: None Family History: ALS in mother Physical examination: Vital signs reviewed General: non toxic, no distress, appears at stated age, normal weight Derm: no unusual rashes/lesions, warm Head: atraumatic, normocephalic, symmetric Eyes: EOMI, no lid lag, anicteric sclera, pupils equal round reactive to light ENT: Nose and ears atraumatic Neck: No cervical lymphadenopathy, trachea midline, supple Mouth: no lip lesion, mucus membranes moist Cardiovascular: S1S2 reg, no murmur, positive dorsalis pedis pulse bilateral, no edema Lungs: CTA bilateral, no rhonchi, no rales, no accessory muscle use Abdominal: soft, nontender to palpation, no guarding Ext: muscle strength 3 out of 5 in RUE, 4 out of 5 in LUE, 3 out of 5 in both lower extremities, no gross muscle atrophy, no contractures, Neuro: CN II-XI grossly intact, no gross focal neuro deficits Psych: Alert, oriented, appropriate affect Assessment/Plan: Patient is a 48-year-old female with history of Arnold-Chiari malformation status post surgery in 2014 and 2019, CVA presents to the ER with constellation of neurological symptoms. Patient is admitted to the internal medicine service for further evaluation of suspected CVA. #Suspected CVA/TIA #History of Chiari malformation s/p surgery Brain CT shows no acute intracranial processes. CT angio of the head and neck unremarkable for any significant stenosis, aneurysm and/or dissection. Order brain MRI Order EEG, order prolactin Order echocardiogram Order TSH, vitamin B12, folate Order HbA1c Order lipid panel start Aspirin 81 mg p.o. daily Cardiac telemetry Consult neurology Consult PT/OT Fall precautions DVT prophylaxis with Lovenox subcu History of ALS, consider spine MRI #Anion gap metabolic acidosis sodium 138, potassium 4.3, chloride 105, bicarb 18, anion gap 15 Ordered lactic acid Order prolactin DVT prophylaxis: Lovenox subcu 40 mg The patient is admitted with an anticipated less than 2 midnight stay for evaluation of CVA CODE STATUS: Full code Discussed with: Patient Anticipated discharge place: Pending clinical course A total of 55 minutes was spent on the care of this complex patient more than 50% of the time was spent in counseling and care coordination. I have seen and evaluated the patient today. Discussed with the resident and agree with the residents finding and plan as documented in the resident's note. Changes highlighted in blue font. Past Medical History Past Medical History: CVA/TIA Additional Past Medical History / Comment(s): Chiari malformation, low BP. History of Any Multi-Drug Resistant Organisms: None Reported Past Surgical History: Appendectomy Additional Past Surgical History / Comment(s): Chiari malformation surgery X2, septoplasty. Past Anesthesia/Blood Transfusion Reactions: Motion Sickness, Postoperative Nausea & Vomiting (PONV) Past Psychological History: No Psychological Hx Reported Smoking Status: Former smoker Past Alcohol Use History: Occasional Past Drug Use History: None Reported - Past Family History Mother Family Medical History: No Reported History Medications and Allergies Home Medications Medication Instructions Recorded Confirmed Type ondansetron HCL [Zofran] 4 mg PO Q6H PRN 09/06/17 03/20/24 History Acetaminophen/Pamabrom [Midol 2 - 4 tab PO DAILY PRN 03/20/24 03/20/24 History Caplet] Temazepam 7.5 mg PO HS 03/20/24 03/20/24 History Allergies Allergy/AdvReac Type Severity Reaction Status Date / Time No Known Allergies Allergy Verified 03/20/24 14:07 Physical Exam Vitals: Vital Signs Temp Pulse Resp BP Pulse Ox 03/20/24 16:46 66 16 117/87 03/20/24 15:15 66 18 122/79 100 03/20/24 12:52 98.5 F 129 H 20 128/87 99 Intake and Output 03/20/24 03/20/24 03/20/24 06:59 14:59 22:59 Other: Weight 54.431 kg Results CBC & Chem 7: 03/20/24 13:41 03/20/24 13:41 Labs: Abnormal Lab Results - Last 24 Hours (Table) 03/20/24 Range/Units 13:41 Carbon Dioxide 18 L (22-30) mmol/L Glucose 104 H (74-99) mg/dL
--- NOTE | 2024-03-20 21:03 | MR ---
EXAMINATION TYPE: MR brain wo con DATE OF EXAM: 03/20/2024 COMPARISON: 11/09/2022 HISTORY: CVA, dizziness, Patient started getting tingly, foggy sensation, dizziness and then legs devon t spastic. CONTRAST: Performed utilizing 0 mL intravenous Gadavist gadolinium contrast. TECHNIQUE: Multiplanar, multiecho imaging on a 3.0 Sheila magnet is performed through the brain. Stud y is performed within 24 hours of arrival to the hospital. The craniovertebral junction is normal. The pituitary is normal. Diffusion-weighted imaging is performed. No abnormal hyperintensity is present to suggest an acute i ntracranial infarct or acute ischemic change. Signal within the brain appears unremarkable. No blooming artifacts are identified. Ventricles and sulci are appropriate for the patient age. Pineal gland is stable from comparison IMPRESSION: 1. No acute intracranial process. [facility], Workstation: [id number], 03/20/2024 9:01 PM
[2024-03-20 23:36] LABS: T4, Free (Free Thyroxine) 0.88 ng/dL (0.78-2.19)
[2024-03-21] MEDS: ENOXAPARIN 40 MG/0.4 ML SYRINGE SQ SCH (08:53)
[2024-03-21] MEDS: ASPIRIN 81 MG PO SCH (08:53)
[2024-03-21] MEDS ORDERED: ASPIRIN 325 MG TAB PO SCH (09:00)
[2024-03-21 10:53] LABS: African American GFR (CKD) >90 (>60 ml/min/1.73 sqM); Anion Gap 4 mmol/L; Blood Urea Nitrogen 14 mg/dL (7-17); Carbon Dioxide 26 mmol/L (22-30); Chloride 108 mmol/L (98-107); Glucose 85 mg/dL (74-99); Non-African American GFR(CKD) >90 (>60 ml/min/1.73 sqM); Potassium 4.2 mmol/L (3.5-5.1); Sodium 138 mmol/L (137-145)
--- NOTE | 2024-03-21 11:13 | CA ---
Transthoracic Echo Report Name: Mindy Chamorro Age: 48 Gender: F : 1975 Exam Date: 03/21/2024 08:03 Exam Location: [place] [facility] Ht (in): 62 Wt (lb): 120 Ordering Physician: Sam Dao MD Attending/Referring Phys: [id number], Feliberto [employer] Lisa Diaz RDCS Procedure CPT: Indications: CVA Cardiac Hx: Technical Quality: Excellent Contrast 1: Agitated Saline Total Dose (mL): 9 Contrast 2: Total Dose (mL): MEASUREMENTS (Male / Female) Normal Values 2D ECHO LV Diastolic Diameter PLAX 5.2 cm 4.2 - 5.9 / 3.9 - 5.3 cm LV Systolic Diameter PLAX 3.2 cm IVS Diastolic Thickness 0.9 cm 0.6 - 1.0 / 0.6 - 0.9 cm LVPW Diastolic Thickness 0.9 cm 0.6 - 1.0 / 0.6 - 0.9 cm LV Relative Wall Thickness 0.3 RV Internal Dim ED PLAX 3.4 cm LA Systolic Diameter LX 3.5 cm 3.0 - 4.0 / 2.7 - 3.8 cm LV Diastolic Volume MOD 4C 90.4 cm??? LV Systolic Volume MOD 4C 35.6 cm??? LV Ejection Fraction MOD 4C 60.6 % LV Cardiac Index MOD 4C 2124.4 cm???/min???m??? LV Diastolic Length 4C 7.5 cm LV Systolic Length 4C 5.8 cm LV Diastolic Volume MOD 2C 73.7 cm??? LV Systolic Volume MOD 2C 30.2 cm??? LV Ejection Fraction MOD 2C 59.1 % LV Cardiac Index MOD 2C 1687.9 cm???/min???m??? LV Diastolic Length 2C 7.7 cm LV Systolic Length 2C 6.1 cm LA Volume 49.3 cm??? 18 - 58 / 22 - 52 cm??? LA Volume Index 31.9 cm???/m??? 16 - 28 cm???/m??? M-MODE Aortic Root Diameter MM 2.9 cm AV Cusp Separation MM 2.1 cm DOPPLER AV Peak Velocity 154.3 cm/s AV Peak Gradient 9.5 mmHg MV Area PHT 2.7 cm??? Mitral E Point Velocity 97.1 cm/s Mitral A Point Velocity 61.5 cm/s Mitral E to A Ratio 1.6 MV Deceleration Time 281.7 ms TR Peak Velocity 172.4 cm/s TR Peak Gradient 11.9 mmHg Right Ventricular Systolic Press 16.8 mmHg FINDINGS Left Ventricle Left ventricular ejection fraction is estimated at 60-65 %. Left ventricular cavity size normal. Left ventricular wall thickness normal. Right Ventricle Right ventricular dilatation. Right ventricular systolic pressure within normal limits. Right Atrium Normal right atrial size. No right atrial thrombus or mass seen. Negative agitated saline bubble study for right to left shunt. Left Atrium Normal left atrial size. No left atrial thrombus or mass present. Mitral Valve Structurally normal mitral valve. No mitral stenosis, regurgitation or prolapse. Aortic Valve Trileaflet aortic valve. No aortic valve stenosis or regurgitation. Tricuspid Valve Structurally normal tricuspid valve. Trace to mild tricuspid regurgitation. Pulmonic Valve Pulmonic valve not well visualized. No pulmonic regurgitation. Pericardium No pericardial or pleural effusion. Aorta Normal size aortic root and proximal ascending aorta. CONCLUSIONS Normal LV function Previewed by: Dr. Haseeb Thompson MD (Electronically Signed) Final Date: 21 March 2024 11:12
[2024-03-21 13:59] VITALS: PULSE 74
[2024-03-21 15:15] LABS: Chol/HDL Ratio 2.91 Ratio; VLDL Calculation 11.58 mg/dL (5.00-40.00)
--- NOTE | 2024-03-21 15:43 | P.PN ---
Subjective Progress Note Date: 03/21/24 Hospital course: Patient is a 48-year-old female with history of Arnold-Chiari malformation status post surgery in 2014 and 2019, CVA presents to the ER with constellation of neurological symptoms. Lab evaluation in the ER shows WBC 7.9, hemoglobin 12.9, MCV 90.8, platelet count 322, PT 10.9, INR 1.0, APTT 22.3, sodium 138, potassium 4.3, chloride 105, bicarb 18, anion gap 15, BUN 12, creatinine 0.59. Troponin I less than 0.012, creatinine kinase 48. Vital signs: Temperature 98.5 F, heart rate 129, respiration 20, BP 128/87, saturating 99% on room air. EKG in the ER shows normal sinus rhythm with normal [place] interval and no QTc prolongation noted. No specific STT wave changes noted. Brain CT shows no acute intracranial processes. CT angio of the head and neck unremarkable for any significant stenosis, aneurysm and/or dissection. Brain MRI shows no acute intracranial process. Echocardiogram shows LVEF of 60 to 65% with no PFO. Neurology consulted. Subjective: Patient seen and examined at the bedside. Patient states that she is back to her baseline strength. No acute events overnight. All Systems reviewed and pertinent positives and negatives noted in HPI, all other symptoms are negative Objective: Vital signs reviewed. General: non toxic, no distress, appears at stated age, normal weight Derm: no unusual rashes/lesions, warm Head: atraumatic, normocephalic, symmetric Eyes: EOMI, no lid lag, anicteric sclera, pupils equal round reactive to light ENT: Nose and ears atraumatic Neck: No cervical lymphadenopathy, trachea midline, supple Mouth: no lip lesion, mucus membranes moist Cardiovascular: S1S2 reg, no murmur, positive dorsalis pedis pulse bilateral, no edema Lungs: CTA bilateral, no rhonchi, no rales, no accessory muscle use Abdominal: soft, nontender to palpation, no guarding Ext: muscle strength 5 out of 5 in all 4 extremities grossly, no gross muscle atrophy, no contractures, Neuro: CN II-XI grossly intact, no gross focal neuro deficits Psych: Alert, oriented, appropriate affect Data reviewed today: Labs: Sodium 138, potassium 4.2, chloride 108, bicarb 27, BUN 40, creatinine 0.63, magnesium 1.8, TSH 5.17, free T40.88, vitamin B12 842, folate 15.4 Images: No new images Assessment and Plan: Patient is a 48-year-old female with history of Arnold-Chiari malformation status post surgery in 2014 and 2019, CVA presents to the ER with constellation of neurological symptoms. Patient is admitted to the internal medicine service for further evaluation of suspected CVA. #Suspected CVA/TIA #Suspected multiple sclerosis #History of Chiari malformation s/p surgery Brain CT shows no acute intracranial processes. CT angio of the head and neck unremarkable for any significant stenosis, aneurysm and/or dissection. Brain MRI shows no acute intracranial process Order cervical MRI for suspected multiple sclerosis Echocardiogram shows LVEF of 60 to 65% with no PFO EEG pending, prolactin pending Continue with aspirin 81 mg 10-year risk for cardiovascular event is less than 5%: statin not indicated Cardiac telemetry Consult neurology OT/PT Fall precautions I saw and evaluated the patient during the sheth and critical portions of this encounter, and discussed the case in detail with the resident author of this note, I agree with the Assessment and Plan, and my changes, if any, are highlighted in blue. #Anion gap metabolic acidosis, resolved Sodium 138, potassium 4.2, chloride 108, bicarb 27 F: None E: Replete as needed N: Regular diet A: Ambulatory without assist DVT ppx: Lovenox subcu 40 Code Status: Full code Anticipated discharge place: Home Anticipated discharge date: Pending clinical course I saw and evaluated the patient during the sheth and critical portions of this encounter, and discussed the case in detail with the resident author of this note, I agree with the Assessment and Plan, and my changes, if any, are highlighted in blue. Objective - Vital Signs Vital signs: Vital Signs Temp 97.7 F 03/20/24 18:29 Pulse 74 03/21/24 13:00 Resp 17 03/21/24 13:00 BP 127/74 03/21/24 13:00 Pulse Ox 98 03/21/24 13:00 FiO2 Intake & Output 03/20/24 03/21/24 03/21/24 18:59 06:59 18:59 Weight 54.431 kg - Labs CBC & Chem 7: 03/20/24 13:41 03/21/24 10:24 Labs: Abnormal Lab Results - Last 24 Hours (Table) 1003/20/24 03/21/24 Range/Units 13:41 17:25 10:24 Chloride 108 H (98-107) mmol/L Plasma Lactic Acid Jung 0.6 L (0.7-2.0) mmol/L TSH 5.170 H (0.465-4.680) mIU/L
[2024-03-21 15:53] VITALS: BP 108/72; RESP 16; TEMP 97.4
--- NOTE | 2024-03-21 16:01 | P.CNNES ---
History of Present Illness Consult date: 03/21/24 Requesting physician: Jj Mayorga Reason for Consult: TIA History of Present Illness: Patient is a 48-year-old right-handed female, with history of Chiari malformation, status post decompression, came to the hospital by ambulance yesterday at 12:48 PM for focal neurological symptoms. Patient states that she has history of Chiari malformation, for which she underwent surgery initially on 2014 and then had a second surgery in 2019. After her second brain surgery, patient claims she had a "mini CVA", with which she has persistent numbness of the right arm. 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 She forgot what she was teaching also noticed some headache, dizziness. She also had a very brief, sharp transient pain from the center of the chest to the left but it was only for a brief moment. Then her legs started feeling numb and tingly and felt will fall down. Her coworkers lowered her to the ground. As she was not feeling better, EMS was called. EMS flowsheet not available in the chart. Apparently while she was in the ambulance, her legs started shaking uncontrollably, both legs affected, and that lasted for about 20 minutes. It went away for 5 minutes and then came back for another 5 to 10 minutes. It happened 3 different times. During this time, she has already arrived to the ER where it continued. She was given Ativan, and since then it has not happened further. Patient never lost consciousness or lost awareness during the time she was having these leg shaking. Patient does have a video of her leg shaking recorded on her cell phone, and I looked at it. Her legs were shaking, arhythmically, left > right. Patient denies any history of seizures, any history of head trauma. No history of febrile convulsions in childhood. Vital signs on arrival blood pressure 128/87 pulse is 129 temperature 98.5. Blood test shows normal EKG with sinus rhythm, incomplete right BBB. CT head revealed no acute intracranial process. Postsurgical changes from occipital decompression redemonstrated. Current medications include Zofran, temazepam 7.5 mg and Midol caplet. Patient states she always have chronic neck pain. Denies any problem with bowel or bladder control. Patient smoked for 12 years. In the last 5 years of her smoking history, she was smoking up to a pack a day. She completely quit smoking in 2008. She does drink a glass of wine. Patient is very active, runs every day. Review of Systems All pertinent positive and negative review of systems mentioned HPI, otherwise unremarkable. Past Medical History Past Medical History: CVA/TIA Additional Past Medical History / Comment(s): Chiari malformation, low BP. History of Any Multi-Drug Resistant Organisms: None Reported Past Surgical History: Appendectomy Additional Past Surgical History / Comment(s): Chiari malformation surgery X2, septoplasty. Past Anesthesia/Blood Transfusion Reactions: Motion Sickness, Postoperative Nausea & Vomiting (PONV) Past Psychological History: No Psychological Hx Reported Smoking Status: Former smoker Past Alcohol Use History: Occasional Past Drug Use History: None Reported - Past Family History Mother Family Medical History: No Reported History Father Family Medical History: COPD, Dementia, Respiratory Disorder Additional Family Medical History / Comment(s): Emphysema-still alive Medications and Allergies Home Medications Medication Instructions Recorded Confirmed Type ondansetron HCL [Zofran] 4 mg PO Q6H PRN 09/06/17 03/20/24 History Acetaminophen/Pamabrom [Midol 2 - 4 tab PO DAILY PRN 03/20/24 03/20/24 History Caplet] Temazepam 7.5 mg PO HS 03/20/24 03/20/24 History Allergies Allergy/AdvReac Type Severity Reaction Status Date / Time No Known Allergies Allergy Verified 03/20/24 14:07 Physical Examination - Vital Signs Vital Signs: Vital Signs Temp Pulse Resp BP Pulse Ox 03/21/24 07:00 54 L 16 94/68 95 03/21/24 04:00 61 16 107/72 97 03/21/24 00:00 57 L 15 98/65 03/20/24 22:00 71 16 96/65 97 03/20/24 19:56 86 19 110/73 92 L 03/20/24 18:29 97.7 F 63 16 113/79 97 03/20/24 16:46 66 16 117/87 03/20/24 15:15 66 18 122/79 100 03/20/24 12:52 98.5 F 129 H 20 128/87 99 Patient is a middle aged female, very pleasant, in no acute distress. Patient is alert awake oriented to time place and person. Speech and language functions are normal. Patient can name and repeat very well. No aphasia or dysarthria. Attention, concentration and fund of knowledge is adequate. On cranial nerve examination, pupils are equal, round and reacting to light, visual echevarria are full on confrontation, with no neglect on double simultaneous stimulation. Extraocular muscles are intact with no nystagmus. Face is s ymmetric, tongue protrudes to the midline. Palatal elevation and sensation normal, hearing and shoulder shrug normal, facial sensation normal. On muscle strength testing, there is no pronator drift and the strength is normal in arms and legs distally and proximally. Deep tendon reflexes are symmetric 1+ and plantars downgoing. Sensory to touch is equal with no neglect on double simultaneous stimulation. Cerebellar function showed no ataxia for [id number] testing. No dysdiadochokinesia. No ataxia for [id number] testing on either side. Tone and bulk of muscles normal. Gait deferred.. On general examination, there is no carotid bruit or murmur, S1-S2 audible. Chest is clear on consultation. Abdomen is soft nontender. No organomegaly, bowel sounds present. Peripheral pulses are present. No peripheral edema. Results - Laboratory Findings CBC and BMP: 03/20/24 13:41 03/21/24 10:24 Abnormal Lab Findings: Abnormal Labs 03/20/24 03/20/24 03/20/24 13:41 13:41 17:25 Chloride Carbon Dioxide 18 L Glucose 104 H Plasma Lactic Acid Jung 0.6 L TSH 5.170 H 03/21/24 10:24 Chloride 108 H Carbon Dioxide Glucose Plasma Lactic Acid Jung TSH Assessment and Plan Assessment: * Acute onset of vague neurological symptoms, with numbness of the left arm, speech difficulty, foggy brain, followed by some uncontrolled movement of the lower extremities. Patient did not lose consciousness or awareness. Exact cause is uncertain. All workup performed as below is negative. * History of Chiari malformation, status post decompressive surgery x 2 * Ex tobacco use Plan: Patient had undergone appropriate workup, all came back negative. MRI of the brain revealed no acute intracranial process. I personally reviewed MRI, agree with the findings. CTA of head and neck revealed no evidence of dissection of the cervical internal carotid arteries or vertebral arteries or any evidence of significant stenosis at the carotid bifurcation. No evidence of high-grade stenosis or intracranial aneurysm. 2D echo revealed LVEF 60 to 65%. Left ventricular wall thickness is normal. Normal left atrial size. No valvular abnormalities. EEG is normal awake and drowsy pattern. No focal, lateralized or epileptiform activity was seen. Fasting lipid panel with cholesterol 170, LDL 100, HDL 58, triglycerides 57. Hemoglobin A1c 5.5 B12 842, folate 15.40, TSH is 5.17. Free T4 normal. Patient also had MRI of the cervical spine which revealed no evidence for disc herniation or significant spinal canal stenosis. No evidence of post contrast enhancement. Postsurgical changes to the skull base. Patient states that she does take temazepam, and has not missed the dose of temazepam. Exact cause of her symptoms remains unclear. Patient feels back to baseline. No other workup indicated at this time. Neurologically clear for discharge. Thank you for the consult.
--- NOTE | 2024-03-21 17:12 | MR ---
EXAMINATION TYPE: MR cervical spine wo/w con DATE OF EXAM: 03/21/2024 4:55 PM COMPARISON: 11/06/2019. CLINICAL INDICATION: Female, 48 years old with history of UE/LE weakness, MS?; PHH, UE/LE weakness. M S? history of Chiari malformation decompression. TECHNIQUE: Multi planar, multi sequence imaging was performed utilizing: T1-weighted, T2-weighted, an d turbo inversion recovery imaging of the cervical spine. IV Contrast: 5.5 cc Gadobutrol (none if empty) FINDINGS: Alignment: The cervical vertebral bodies have preserved heights. Alignment is within normal limits gi bowen patient positioning. Bones: Postsurgical changes of the skull base. Bone signal is within normal limits. No abnormal bone marrow edema on inversion recovery sequences. Cord: The spinal cord is unremarkable with regards to their signal intensity and morphology. No abnor mal postcontrast enhancement Discs: Intervertebral disc signal is maintained. C2-C3: No significant disc pathology. The spinal canal is patent. No neural foraminal stenosis. C3-C4: No significant disc pathology. The spinal canal is patent. No neural foraminal stenosis. C4-C5: No significant disc pathology. The spinal canal is patent. No neural foraminal stenosis. C5-C6: A disc osteophyte complex is present which minimally narrows the ventral subarachnoid space. No neural foraminal stenosis. C6-C7: No significant disc pathology. The spinal canal is patent. No neural foraminal stenosis. C7-T1: No significant disc pathology. The spinal canal is patent. No neural foraminal stenosis. Other: None. IMPRESSION: 1. No evidence for disc herniation or significant spinal canal stenosis. 2. Mild motion artifact. No evidence for abnormal postcontrast enhancement. Spinal cord appears withi n normal limits. 3. Post surgical changes to the skull base. [facility], , 03/21/2024 5:10 PM
--- NOTE | 2024-03-21 17:36 | P.DS ---
Providers Date of admission: 03/20/24 16:22 Attending physician: Sam Dao Consults: 03/20/24 16:28 Consult Physician Urgent Consulting Provider: Garland Campos Consult Reason/Comments: TIA Do you want consulting provider notified?: Yes Primary care physician: Samantha [facility] Hospital Course: Discharge Diagnosis: #Suspected CVA/TIA #Suspected multiple sclerosis #History of Chiari malformation s/p surgery #Anion gap metabolic acidosis, resolved Hospital Course: Patient is a 48-year-old female with history of Arnold-Chiari malformation status post surgery in 2014 and 2019, CVA presents to the ER with constellation of neurological symptoms. Lab evaluation in the ER shows WBC 7.9, hemoglobin 12.9, MCV 90.8, platelet count 322, PT 10.9, INR 1.0, APTT 22.3, sodium 138, potassium 4.3, chloride 105, bicarb 18, anion gap 15, BUN 12, creatinine 0.59. Troponin I less than 0.012, creatinine kinase 48. Vital signs: Temperature 98.5 F, heart rate 129, respiration 20, BP 128/87, saturating 99% on room air. EKG in the ER shows normal sinus rhythm with normal [place] interval and no QTc prolongation noted. No specific STT wave changes noted. Brain CT shows no acute intracranial processes. CT angio of the head and neck unremarkable for any significant stenosis, aneurysm and/or dissection. Brain MRI shows no acute intracranial process. Echocardiogram shows LVEF of 60 to 65% with no PFO. Neurology consulted. Patient back to her baseline strength. Cervical spine MRI is unremarkable. Exact cause of her symptoms remains unclear. However, patient is medically optimized to be discharged. Patient is ready for discharge with instructions to follow-up with her PCP and neurology as outpatient. Patient to continue with her home medications as directed Patient to be discharged to home with self-care. Vital signs reviewed. Gen: in no apparent distress, resting comfortably in bed Eyes: PERRL, no scleral injection or icterus HENT: normocephalic, atraumatic, good hearing acuity, moist mucous membranes Neck: full range of motion Resp: CTAB, no rales, rhonchi, or wheezes CVS: normal S1 and S2, no murmurs, rubs or gallops, no edema GI: soft, NTTP, ND, no hepatosplenomegaly : no suprapubic tenderness, no CVAT, begum catheter [is/not] present MSK: no clubbing, no cyanosis, no noted contractures of extremities Skin: no noted rashes, petechiae; temperature of skin is appropriate Neuro: moving all extremities without signs of weakness, CN II-XII intact Psych: cooperative, euthymic mood, insight and judgment intact I saw and evaluated the patient during the sheth and critical portions of this encounter, and discussed the case in detail with the resident author of this note, I agree with the Assessment and Plan, and my changes, if any, are highlighted in blue. Plan - Discharge Summary Discharge Rx Participant: No New Discharge Prescriptions: Continue ondansetron HCL [Zofran] 4 mg PO Q6H PRN PRN Reason: Nausea Temazepam 7.5 mg PO HS Acetaminophen/Pamabrom [Midol Caplet] 2 - 4 tab PO DAILY PRN PRN Reason: Menstrual Cramps Discharge Medication List ondansetron HCL [Zofran] 4 mg PO Q6H PRN 09/06/17 [History] Acetaminophen/Pamabrom [Midol Caplet] 2 - 4 tab PO DAILY PRN 03/20/24 [History] Temazepam 7.5 mg PO HS 03/20/24 [History] Follow up Appointment(s)/Referral(s): Samantha Desir MD [Primary Care Provider] - 1-2 days Patient Instructions/Handouts: Transient Ischemic Attack (DC) Activity/Diet/Wound Care/Special Instructions: Please follow-up with your PCP and outpatient neurology as soon as possible. Discharge Disposition: HOME SELF-CARE
--- NOTE | 2024-03-21 23:32 | EEG ---
ELECTROENCEPHALOGRAM REPORT PREAMBLE: This is a 48-year-old female, who came with possible seizure-like activity. EEG FINDINGS: This is a 21-channel digital EEG recorded with video component, utilizing 10/20 international system with referential and bipolar montages. Background consists of well developed, well regulated, moderate voltage activity in 12 hertz alpha. Background is posterior dominant and reactive to eye opening and closing. Photic driving response was seen with some flash frequencies. Drowsiness was seen with appearance of intermittent bilateral symmetric theta frequency rhythm. Deeper stages of sleep were not seen. No focal or generalized epileptiform activity was seen. IMPRESSION: This is a normal awake and drowsy EEG. No focal, lateralized, or epileptiform activity was seen. MMODL / IJN: [id number] /
== END 2024-03-21 17:52 | disposition home or self-care (01) ==
LOC: EC 12:48 → 3SCARD 16:22
PROVIDERS: ADMIT Student in an Organized Health Care Education/Training Program; ATTEND Student in an Organized Health Care Education/Training Program
DX: R53.1 Weakness (principal); R51.9 Headache, unspecified; R20.0 Anesthesia of skin; R47.89 Other speech disturbances; G25.89 Other specified extrapyramidal and movement disorders; R41.840 Attention and concentration deficit; E87.20 Acidosis, unspecified; I69.351 Hemiplegia and hemiparesis following cerebral infarction affecting right dominant side; Z87.728 Personal history of other specified (corrected) congenital malformations of nervous system and sense organs; Z87.891 Personal history of nicotine dependence
CPT/HCPCS: 96372; 96374; 99285; 36415; 95816; 93005; 93306; 84439; 80061; 80053; 80048; 84443; 82607; 82550; 82746; 83605; 83735; 84484; 85025; 85610; 85730; 84146; 83036; 70496; 70450; 70498; 70551; 72156; G0378 ×2; J2060; J1650; Q9967; A9585

== ENCOUNTER → 2024-04-21 | Outpatient (CLI) | payer BC ==
--- NOTE | 2024-04-21 21:26 | MR ---
EXAMINATION TYPE: MR thoracic spine wo/w con DATE OF EXAM: 04/21/2024 7:43 PM COMPARISON: 09/07/2020. CLINICAL INDICATION: Female, 48 years old with history of M62.81 MUSCLE WEAKNESS (GENERALIZED); PHH, Pain in back and legs with weakness since August 2022, involuntary leg movements, evaluate for AVM dem yelination TECHNIQUE: Multi planar, multi sequence imaging was performed utilizing: T1-weighted, short-tau inver annette recovery and T2-weighted of the thoracic spine. IV Contrast: 5.5 mL Gadobutrol (None, if empty) FINDINGS: Alignment: Alignment is within normal limits. Vertebral bodies have preserved heights. Spinal cord: Spinal cord is within normal limits for signal. No abnormal postcontrast enhancement. Discs: Intervertebral disc signal is maintained. No evidence of significant spinal canal or neural fo raminal stenosis. There is no evidence of extradural defects or central spinal canal narrowing at any thoracic vertebral body level. No abnormal postcontrast enhancement. Osseous structures: No abnormal bony edema on inversion recovery sequences. Minimal osteophyte format ion and facet joint arthropathy. Scattered disc space narrowing. IMPRESSION: 1. No evidence for significant spinal canal or neural foraminal stenosis. Spinal cord signal is main tained no evidence for vascular malformation. 2. No abnormal postcontrast enhancement. 3. Mild multilevel degeneration changes of the spine. [facility], , 04/21/2024 9:23 PM
== END | disposition home or self-care (01) ==
LOC: RADMRIMAIN 18:13
PROVIDERS: ATTEND Psychiatry & Neurology Neurology
DX: M51.24 Other intervertebral disc displacement, thoracic region (principal); M47.894 Other spondylosis, thoracic region; M62.81 Muscle weakness (generalized)
CPT/HCPCS: 72157; A9585